=== PATIENT | male | born 1965 | race Caucasian/White ===

== ENCOUNTER 2024-03-27 14:02 | Emergency (ER) | payer OTHER, SELFPAY ==
[2024-03-27 14:15] VITALS: BP 132/71; PULSE 56; RESP 18; TEMP 37.2; O2SAT 97
--- NOTE | 2024-03-27 14:21 | ED.GENADULT ---
HPI - General Adult General Chief complaint: Abdominal Pain Stated complaint: stomach pain and fogginess Time Seen by Provider: 03/27/24 14:21 Source: patient Mode of arrival: ambulatory Limitations: no limitations History of Present Illness HPI narrative: 58-year-old male presents with complaint of nausea, vomiting, abdominal burning discomfort, fatigue since waking up this morning. Attempted to go to work and left. Vomited x1. Afebrile. Reports having normal bowel movements. Reports negative home COVID test. All systems reviewed and negative except as noted above. Related Data Allergies Allergy/AdvReac Type Severity Reaction Status Date / Time Penicillins Allergy Rash Verified 03/27/24 14:28 Review of Systems Review of Systems: CONSTITUTIONAL: Denies fever, chills, or sweats. reports fatigue. EYES: Denies visual changes, redness, or discharge. ENT: Denies rhinorrhea, congestion, sore throat, or otalgia. CARDIOVASCULAR: Denies chest pain, palpitations, or edema. RESPIRATORY: Denies cough or dyspnea. GASTROINTESTINAL: Denies abdominal pain. Reports nausea, vomiting . Denies diarrhea. GENITOURINARY: Denies dysuria or hematuria. SKIN: Denies rash or itching. MUSCULOSKELETAL: Denies back pain, joint pain, or myalgia. NEUROLOGIC: Denies headache, numbness, or weakness. PSYCHIATRIC: Denies anxiety or depression. All other systems reviewed are negative, except as documented in HPI. PMFSH Comments At time of signature, agree with nursing past medical, surgical, social and family history. There is no relevant family history pertinent to the presenting complaint. Exam Narrative: GENERAL: This is a well-nourished, well-developed patient, Patient ill-appearing but no acute distress. HEAD: normocephalic, atraumatic. EYES: PERRL. Sclera clear/white. Vision is grossly intact. EARS: External ears normal NOSE: External nose normal NECK: Neck supple, non-tender without lymphadenopathy, masses or thyromegaly. CARDIOVASCULAR: Regular rate and rhythm without murmurs, gallops, or rubs. RESPIRATORY: Clear to auscultation. Breath sounds equal bilaterally. No wheezes, rales, or rhonchi. GASTROINTESTINAL: Abdomen soft, non-tender, nondistended. Bowel sounds are active. No hepato-splenomegaly, or palpable masses. No guarding. SKIN: warm, Dry, intact with no suspicious lesions or rash, good texture and turgor. NEURO: awake, alert, and oriented to person, place and time. There were no obvious focal neurologic abnormalities. EXTREMITIES: No joint tenderness, effusion, or edema noted. Course Course Level of Care: Express [facility] Visit Vital Signs Vital signs: Vital Signs Temperature 37.2 C 03/27/24 14:15 Pulse Rate 56 L 03/27/24 14:15 Respiratory Rate 18 03/27/24 14:15 Blood Pressure 132/71 03/27/24 14:15 Pulse Oximetry 97 03/27/24 14:15 Oxygen Delivery Room Air 03/27/24 14:15 Temperature 37.2 C 03/27/24 14:15 Pulse Rate 56 L 03/27/24 14:15 Respiratory Rate 18 03/27/24 14:15 Blood Pressure 132/71 03/27/24 14:15 Pulse Oximetry 97 03/27/24 14:15 Oxygen Delivery Room Air 03/27/24 14:15 reviewed Medical Decision Making MDM Narrative Medical decision making narrative: Patient is aware of diagnosis, understands and agrees to treatment plan. Anticipatory guidance given. Patient agrees to follow-up as directed and is aware of reasons to seek care at the emergency department. Portions of this record may have been created with voice recognition software negative influenza test. No abdominal tenderness on exam. No nausea while at [facility]. Will discharge with Zofran and Bentyl. Vital Signs Vital Signs: Vital Signs Temperature 37.2 C 03/27/24 14:15 Pulse Rate 56 L 03/27/24 14:15 Respiratory Rate 18 03/27/24 14:15 Blood Pressure 132/71 03/27/24 14:15 Pulse Oximetry 97 03/27/24 14:15 Oxygen Delivery Room Air 03/27/24 14:15 Temperature 37.
[2024-03-27] MEDS: ONDANSETRON HCL ODT 4 MG TABLET SUBLINGUAL (14:32)
[2024-03-27 14:46] LABS: EDINFLUASCREEN Negative; EDINFLUBSCREEN Negative
== END 2024-03-27 14:53 | disposition home or self-care (01) ==
PROVIDERS: Emergency Provider Nurse Practitioner Family
DX: A08.4 Viral intestinal infection, unspecified (principal)
CPT/HCPCS: 87804; 99203; A9270; G0463